=== PATIENT | male | born 1940 | race Caucasian/White ===

== ENCOUNTER 2022-01-24 15:06 | Emergency (ER) | payer MEDICARE ==
[2022-01-24] MEDS ORDERED: Boostrix 0.5 ML (Tdap) VIAL ONE (15:15)
[2022-01-24] MEDS ORDERED: CEFAZOLIN 1 GM VIAL ONE (15:16)
[2022-01-24] MEDS ORDERED: Morphine 4 MG/ML VIAL ONE (15:16)
[2022-01-24 15:23] LABS: #Basophils 0.1 thou/uL (0.0-0.2); #Eosinphils 0.1 thou/uL (0.0-0.7); #Lymphocytes 1.8 thou/uL (1.20-3.40); #Monocytes 0.5 thou/uL (0.11-0.59); #Neutrophils 5.1 thou/uL (1.40-6.50); %Basophils 1.9 % (0.0-1.0); %Eosinophils 1.8 % (0.0-10.0); %Lymphocytes 23.5 % (21.0-51.0); %Monocytes 6.6 % (0.0-10.0); %Neutrophils 66.3 % (42.0-75.0); Hemoglobin 14.4 g/dL (14.0-18.0); Mean Corpuscular HGB CONC 31.8 g/dL (32.0-36.0); Mean Corpuscular Hemoglobin 31.9 pg (27.0-31.0); Mean Platelet Volume 6.1 fL (7.4-10.4); Platelet Count 263 thou/uL (130-400); RBC Distribution Width 13.5 % (11.5-14.5); White Blood Cell (WBC) Count 7.8 thou/uL (4.8-10.8)
[2022-01-24 15:28] LABS: INR-International Normal Ratio 0.9; Prothrombin Time 12.4 sec (12.0-14.7)
[2022-01-24 15:29] LABS: PTT 30.3 sec (22.9-36.1)
[2022-01-24] MEDS ORDERED: Ondansetron PF 4 MG/2 ML Vial ONE (15:32)
[2022-01-24] MEDS ORDERED: Fentanyl 100 MCG/2 ML VIAL ONE (15:33)
[2022-01-24 15:35] LABS: ALT (SGPT) 22 U/L (8-55); AST (SGOT) 23 U/L (5-34); Albumin 4.1 g/dL (3.4-4.8); Alkaline Phosphatase 71 U/L (40-110); Anion Gap 16 mmol/L (10-20); BUN (Urea Nitrogen) 19 mg/dL (8.4-25.7); Bilirubin, Total 0.4 mg/dL (0.2-1.2); Calc. Creatinine Clearance 0 mL/min (70-130); Calcium 9.7 mg/dL (7.8-10.44); Carbon Dioxide 24 mmol/L (23-31); Chloride 99 mmol/L (98-107); Estimated GFR 67; Globulin 3.7 g/dL (2.4-3.5); Glucose 97 mg/dL (83-110); Potassium 3.7 mmol/L (3.5-5.1); Protein, Total 7.8 g/dL (5.8-8.1); Sodium 135 mmol/L (136-145)
[2022-01-24] MEDS ORDERED: Bacitracin 1 PK ONE (15:39)
[2022-01-24] MEDS ORDERED: Sodium Chloride 0.9% 100 ML ONE (15:40)
== END 2022-01-24 15:54 | disposition short-term general hospital (02) ==
LOC: BURERS 15:06
DX: S51.812A Laceration without foreign body of left forearm, initial encounter (principal); S21.112A Laceration without foreign body of left front wall of thorax without penetration into thoracic cavity, initial encounter; W22.8XXA Striking against or struck by other objects, initial encounter
CPT/HCPCS: 71045; 80053; 85025; 85610; 85730; 90471; 90715; 96374; 96375; J0690; J2270; J2405; J3010; J3490

== ENCOUNTER 2025-01-16 09:50 | Outpatient (CLI) | payer OTHER ==
[2025-01-16 12:20] LABS: Osmolality, Urine 242 mOsm/kg (50-1200)
== END 2025-01-16 09:51 | disposition home or self-care (01) ==
LOC: BURLAB 09:50
PROVIDERS: ATTEND Family Medicine
DX: I10 Essential (primary) hypertension (principal)
CPT/HCPCS: 83935